=== PATIENT | male | born 1975 | race Caucasian/White ===

== ENCOUNTER 2017-09-06 05:47 | Emergency (ER) | payer OTHER ==
[~2017-09-06] VITALS: Ht 175.3 cm; Wt 2.3 kg
--- OUTSIDE RECORDS SUMMARY | 2017-09-06 05:57 | XMS REPORT ---
Author Author GONZALEZ ROSAS [facility] Address [address] [place] [address] Care Team Providers Care Tick Sewer Name Role Phone GONZLAEZ ROSAS Unavailable PROBLEMS Type Condition ICD9-CM Code [id number] Code Onset Dates Condition Status SNOMED Code Problem Cubital tunnel syndrome on left G56.22 Active 52793744 Problem Family history of cardiovascular disease Z82.49 Active 382786517 ALLERGIES No Information SOCIAL HISTORY Never Assessed PLAN OF CARE VITAL SIGNS MEDICATIONS Unknown Medications RESULTS No Results PROCEDURES No Known procedures IMMUNIZATIONS No Known Immunizations
--- OUTSIDE RECORDS SUMMARY | 2017-09-06 05:57 | XMS REPORT ---
Author Author GONZALEZ ROSAS [facility] Address [address] [place] [address] Care Team Providers Care Freight Loading Supervisor Name Role Phone GONZALEZ ROSAS Unavailable PROBLEMS Type Condition ICD9-CM Code [id number] Code Onset Dates Condition Status SNOMED Code Problem Cubital tunnel syndrome on left G56.22 Active 66405916 Problem Family history of cardiovascular disease Z82.49 Active 291601488 ALLERGIES No Known Allergies SOCIAL HISTORY Never Assessed PLAN OF CARE Activity Details Follow Up CERTIFIED SHORTHAND REPORTER or as needed Reason: VITAL SIGNS Height 68 in 2016-11-03 Weight 214.5 lbs 2016-11-03 Temperature 98.3 degrees Fahrenheit 2016-11-03 Heart Rate 96 bpm 2016-11-03 Respiratory Rate 20 2016-11-03 BMI 32.61 kg/m2 2016-11-03 Blood pressure systolic 110 mmHg 2016-11-03 Blood pressure diastolic 72 mmHg 2016-11-03 MEDICATIONS Medication Instructions Dosage Frequency Start Date End Date Duration Status PredniSONE 20 MG Orally Once a day 1 tablet 24h Oct, Oct, 5 day(s) Active Meloxicam 15 MG Orally Once a day 1 tablet 24h December, 30 day(s) Active RESULTS No Results PROCEDURES No Known procedures IMMUNIZATIONS No Known Immunizations
--- OUTSIDE RECORDS SUMMARY | 2017-09-06 05:57 | XMS REPORT ---
Author NICOLE Pro [facility] eClinicalWorks Address Unknown Phone Unavailable Care Team Providers Care Electronics Assembler Name Role Phone NICOLE BHATTI CP Unavailable Allergies, Adverse Reactions, Alerts Substance Reaction Event Type N.K.D.A. Info Not Available Non Drug Allergy Problems Problem Type Condition Code Onset Dates Condition Status Assessment Nausea & vomiting R11.2 Active Medications Medication Code System Code Instructions Start Date End Date Status Dosage Leonel [facility] [address]-44 4 MG Orally 3 times a day December 16, 2015 1 tablet Procedures Procedure Coding System Code Date Office Visit, Est Pt., Level 3 CPT-4 85906 December 16, 2015 Vital Signs Date/Time: December 16, 2015 Temperature 98.1 F Weight 209.5 lbs Height 68 in BMI 31.85 Index Blood Pressure Diastolic 76 mmHg Blood Pressure Systolic 104 mmHg Cardiac Monitoring Heart Rate 108 bpm Results No Known Results Summary Purpose eClinicalWorks Submission
--- OUTSIDE RECORDS SUMMARY | 2017-09-06 05:57 | XMS REPORT ---
Author VIOLETA Enriquez [facility] eClinicalWorks Address Unknown Phone Unavailable Care Team Providers Care Resume Writer Name Role Phone VIOLETA CONNOR CP Unavailable Allergies, Adverse Reactions, Alerts Substance Reaction Event Type N.K.D.A. Info Not Available Non Drug Allergy Problems Problem Type Condition ICD-9 Code Onset Dates Condition Status Assessment Allergic rhinitis due to allergen 477.9 Active Medications Medication Code System Code Instructions Start Date End Date Status Dosage Flonase [facility] [address]-72 50 MCG/ACT Nasally Once a day May 08, 2015 1 spray in each nostril Claritin [facility] [address]-29 10 MG Orally Once a day May 08, 2015 1 tablet Procedures Procedure Coding System Code Date Office Visit, New Pt., Level 3 CPT-4 13401 May 08, 2015 Vital Signs Date/Time: May 08, 2015 Temperature 98.7 F Weight 196.9 lbs Height 68 in BMI 29.94 Index Blood Pressure Diastolic 80 mmHg Blood Pressure Systolic 110 mmHg Cardiac Monitoring Heart Rate 84 bpm Results No Known Results Summary Purpose eClinicalWorks Submission
--- OUTSIDE RECORDS SUMMARY | 2017-09-06 05:57 | XMS REPORT ---
Author Author DORA VARGAS [facility] eClinicalWorks Address Unknown Phone Unavailable Care Team Providers Care Metal Wire Technician Name Role Phone DORA VARGAS CP Unavailable Allergies, Adverse Reactions, Alerts Substance Reaction Event Type N.K.D.A. Info Not Available Non Drug Allergy Problems Problem Type Condition Code Onset Dates Condition Status Assessment Routine adult health maintenance Z00.00 Active Assessment Family history of cardiovascular disease Z82.49 Active Problem Family history of cardiovascular disease Z82.49 Active Medications No Known Medications Procedures Procedure Coding System Code Date Office Visit, Est Pt., Level 3 CPT-4 52481 Jun 11, 2016 Vital Signs Date/Time: Jun 11, 2016 Cardiac Monitoring Heart Rate 88 bpm Weight 215 lbs Height 68 in BMI 32.69 Index Blood Pressure Diastolic 80 mmHg Blood Pressure Systolic 132 mmHg Results No Known Results Summary Purpose eClinicalWorks Submission
--- OUTSIDE RECORDS SUMMARY | 2017-09-06 05:57 | XMS REPORT ---
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 Reason:elbow VITAL SIGNS Height 68 in 2016-10-13 Weight 213.5 lbs 2016-10-13 Temperature 98.5 degrees Fahrenheit 2016-10-13 Heart Rate 96 bpm 2016-10-13 Respiratory Rate 20 2016-10-13 BMI 32.46 kg/m2 2016-10-13 Blood pressure systolic 128 mmHg 2016-10-13 Blood pressure diastolic 88 mmHg 2016-10-13 MEDICATIONS Medication Instructions Dosage Frequency Start Date End Date Duration Status Meloxicam 15 MG Orally Once a day 1 tablet 24h Sep, Nov, 30 day(s) Active PredniSONE 20 mg Orally Once a day 1 tablet 24h Sep, Oct, 07 days Active RESULTS Name Result Date Reference Range Xray : Elbow, Right 2 views (IN HOUSE) 2016-10-13 PROCEDURES Procedure Date Ordered Result Body Site X-RAY EXAM OF ELBOW Oct 13, 2016 IMMUNIZATIONS No Known Immunizations
--- NOTE | 2017-09-06 06:20 | ED Cough/URI ---
General Chief Complaint: Cough/Cold/Flu Symptoms Stated Complaint: COLD,POSS FEVER,NAUSEA,COUGHING Nursing Triage Note: PT C/O COUGH/CONGESTION/FEVER/CHILLS SINCE YESTERDAY. Source: patient Exam Limitations: no limitations History of Present Illness Time seen by provider: 06:10 Initial Comments Patient presents to ER by private conveyance with a chief complaint the past day he's had chills feeling hot, dry cough with feeling of something in his throat but he can't get out. His been drinking a lot of fluids taking some Tylenol and not feeling any better. When he went to work this morning I told him he needed to come the checked out because they're concerned he might have the flu. He is also concerned that he is a 21-fqqzq[age]vqf child home without a history of pyloric stenosis and had a surgery so he is trying to quit smoking and is down to 6 cigarettes a day and wants to prevent her from touching it. He did not get a flu vaccine this year. He is not having any rash or known fever. Has not taken any Tylenol or Motrin. He denies any history of asthma or COPD. Allergies and Home Medications Allergies Coded Allergies: No Known Drug Allergies (Unverified , 09/06/17) Home Medications Guaifenesin/Codeine Phosphate 120 Ml Liquid, 5 ML PO Q6H PRN for COUGH, #120 Ref 0 Prescribed by: JASON MICHEL on 09/06/17 0621 Constitutional: chills, dizziness, No fever, malaise EENTM: No ear discharge, No ear pain Respiratory: cough, No hemoptysis, No phlegm, No short of breath, No wheezing Cardiovascular: No Hx of Intervention, No syncope Gastrointestinal: No abdominal pain, No diarrhea, No nausea, No vomiting Genitourinary: No discharge, No dysuria Musculoskeletal: No back pain, No joint pain Skin: No pruritus, No rash Past Rhqaolb-Ztcuyu-Pptowt Hx Patient Social History Alcohol Use: Denies Use Recreational Drug Use: No Smoking Status: Current Everyday Smoker Type Used: Cigarettes (0.25 ppd) 2nd Hand Smoke Exposure: Yes Recent Foreign Travel: No Contact w/Someone Who Travel: No Recent Infectious Disease Expo: No Recent Hopitalizations: No Seasonal Allergies Seasonal Allergies: No Surgeries History of Surgeries: No Physical Exam Vital Signs Vital Sign - Last 12Hours 09/06/17 06:00 Temp 99.4 Pulse 109 Resp 18 B/P (MAP) 119/104 (109) Pulse Ox 97 O2 Delivery Room Air Capillary Refill : Less Than 3 Seconds General Appearance: WD/WN, no apparent distress Eyes: Bilateral Eye Normal Inspection, Bilateral Eye PERRL, Bilateral Eye EOMI HEENT: PERRL/EOMI, TM abnormal (R) (mucoid effusion), TM abnormal (L) (mucoid effusion), No pharyngeal erythema, No tonsillar exudate Neck: non-tender, full range of motion, supple, normal inspection Respiratory: chest non-tender, lungs clear, normal breath sounds, no respiratory distress, no accessory muscle use Cardiovascular: normal peripheral pulses, regular rate, rhythm, no edema Extremities: normal inspection, normal capillary refill Neurologic/Psychiatric: alert, oriented x 3 Skin: normal color, warm/dry Lymphatic: no adenopathy Progress/Results/Core Measures Suspected Sepsis Recent Fever Within 48 Hours: No Infection Criteria Present: None New/Unexplained Altered Menta: No Sepsis Screen: No Definite Risk Sepsis Diagnosis: SIRS Temperature:99.4 Pulse: 109 Respiratory Rate: 18 Blood Pressure 119 /104 Mean: 109 Results/Orders Micro Results Microbiology 09/06/17 Influenza Types A,B Antigen (SRIDHAR) - Final, Complete My Orders Orders - JASON MICHEL Influenza A And B Antigens (09/06/17 06:14) Vital Signs/I&O Vital Sign - Last 12Hours 09/06/17 09/06/17 06:00 06:00 Temp 99.4 Pulse 109 Resp 18 B/P (MAP) 119/104 (109) Pulse Ox 97 O2 Delivery Room Air Room Air Capillary Refill : Less Than 3 Seconds Blood Pressure Mean: 109 Departure Impression Impression: Primary Impression: Upper respiratory infection Qualified Codes: J06.9 - Acute upper respiratory infection, unspecified Disposition: 01 HOME, SELF-CARE Condition: Stable Departure-Patient Inst. Decision time for Depature: 06:44 Referrals: NO,LOCAL PHYSICIAN (PCP/Family) Primary Care Physician Patient Instructions: Viral Upper Respiratory Infection, Adult (DC) Add. Discharge Instructions: Drink plenty of fluids. If you're having a cough you may take 5 mL or 1 tablespoon of the cough syrup every 6 hours as needed. Get some rest and use Tylenol 1000 mg every 8 hours and/or ibuprofen 800 mg every 8 hours by mouth for pain, body aches, chills, fever. Wear a mask when in public or new your child. Wash her hands and use hand hr generalist's. Use vapor rubs and humidifiers and turn the heat down in the house. All discharge instructions reviewed with patient and/or family. Voiced understanding. Scripts Guaifenesin/Codeine Phosphate (Codeine-Guaifen 10-100 mg/5 ml) 120 Ml Liquid 5 ML PO Q6H Y for COUGH, #120 ML 0 Refills Prov: JASON MICHEL 09/06/17 Work/School Note: Work Release Form Date Seen in the Emergency Department: Sep 06, 2017 Return to Work: Sep 08, 2017 Restrictions: No Restrictions JASON MICHEL Sep 06, 2017 06:20
[2017-09-06] MEDS ORDERED: GUAI120L56 PO (06:21)
[2017-09-06 06:49] VITALS: BP 110/75
== END 2017-09-06 06:49 | disposition home or self-care (01) ==
LOC: EDUNIT# 05:47 → ER 05:53
DX: J06.9 Acute upper respiratory infection, unspecified (principal); F17.210 Nicotine dependence, cigarettes, uncomplicated
CPT/HCPCS: 87804; 99282

== ENCOUNTER 2018-03-03 07:09 | Emergency (ER) | payer BC ==
[~2018-03-03] VITALS: Ht 175.3 cm; Wt 97.5 kg
[~2018-03-03 07:09] MED LIST: GUAI120L56 PO
--- OUTSIDE RECORDS SUMMARY | 2018-03-03 07:15 | XMS REPORT ---
Author Author DORA VARGAS [facility] Address [address] [place] [address] Care Team Providers Care Sales Lead Name Role Phone DORA VARGAS Unavailable PROBLEMS Type Condition ICD9-CM Code ZSA91-SQ Code Onset Dates Condition Status SNOMED Code Problem Cubital tunnel syndrome on left G56.22 Active 26551932 Problem Family history of cardiovascular disease Z82.49 Active 794345466 ALLERGIES No Known Allergies ENCOUNTERS Encounter Location Date Diagnosis [facility] [id number] [place] [phone] Jun, Routine adult health maintenance Z00.00 [facility] [address] [phone] Feb, Acute nasopharyngitis (common cold) J00 [facility] [address] [address] December, Cubital tunnel syndrome on left G56.22 [facility] [id number] [place] [address] Oct, Medial epicondylitis of right elbow M77.01 [facility] [id number] [place] [address] Oct, Right elbow pain M25.521 [facility] [id number] [place] [address] Sep, [facility] [address] [address] Sep, Right elbow pain M25.521 [facility] [id number] [place] [address] May, Routine adult health maintenance Z00.00 and Family history of cardiovascular disease Z82.49 [place] [address] [address] [address] 29 Apr, 2016 Pharyngitis, unspecified etiology J02.9 [place] [id number] [place] [address] 08 Jan, 2016 Tinea pedis of left foot B35.3 [place] [id number] [place] [address] Nov, Nausea & vomiting R11.2 [id number] [place] [address] Sep, Sinusitis J32.9 and Cough R05 [place] [id number] [place] [address] 17 Apr, 2015 Allergic rhinitis due to allergen 477.9 [id number] [place] [address] Apr, IMMUNIZATIONS No Known Immunizations SOCIAL HISTORY Never Assessed REASON FOR VISIT physical--Eliana Corado MA PLAN OF CARE Activity Details Follow Up prn Reason: VITAL SIGNS Height 68 in 2017-07-12 Weight 213.1 lbs 2017-07-12 Temperature 98.7 degrees Fahrenheit 2017-07-12 Heart Rate 92 bpm 2017-07-12 Respiratory Rate 20 2017-07-12 BMI 32.40 kg/m2 2017-07-12 Blood pressure systolic 124 mmHg 2017-07-12 Blood pressure diastolic 78 mmHg 2017-07-12 MEDICATIONS Medication Instructions Dosage Frequency Start Date End Date Duration Status Promethazine-Codeine 6.25-10 MG/5ML Orally every 6 hrs cough 5 ml as needed Sep, Not-Taking Zofran 4 MG Orally 3 times a day 1 tablet 8h Nov, 05 days Not- Taking RESULTS No Results PROCEDURES No Known procedures INSTRUCTIONS MEDICATIONS ADMINISTERED No Known Medications
--- OUTSIDE RECORDS SUMMARY | 2018-03-03 07:15 | XMS REPORT ---
Author Author MIGUEL A Dubon [facility] Address [address] [place] [address] Care Team Providers Care Pool Attendant Name Role Phone MIGUEL A Dubon Unavailable PROBLEMS Type Condition ICD9-CM Code RWG39-KY Code Onset Dates Condition Status SNOMED Code Problem Cubital tunnel syndrome on left G56.22 Active 11146854 Problem Family history of cardiovascular disease Z82.49 Active 482372079 ALLERGIES No Known Allergies ENCOUNTERS Encounter Location Date Diagnosis [place] [id number] [place] [phone] Jun, Routine adult health maintenance Z00.00 [facility] IN [facility] [id number] [place] [phone] Feb, Acute nasopharyngitis (common cold) J00 [facility] [address] [address] December, Cubital tunnel syndrome on left G56.22 [facility] [id number] [place] [address] Oct, Medial epicondylitis of right elbow M77.01 [facility] [id number] [place] [address] Oct, Right elbow pain M25.521 [facility] [id number] [place] [address] Sep, [facility] [id number] [place] [address] Sep, Right elbow pain M25.521 [facility] [id number] [place] [address] May, Routine adult health maintenance Z00.00 and Family history of cardiovascular disease Z82.49 [place] [id number] [place] [address] 29 Apr, 2016 Pharyngitis, unspecified etiology J02.9 [place] [id number] [place] [address] 08 Jan, 2016 Tinea pedis of left foot B35.3 [place] [id number] [place] [address] Nov, Nausea & vomiting R11.[address] [address] Sep, Sinusitis J32.9 and Cough R05 [place] [id number] [place] [address] 17 Apr, 2015 Allergic rhinitis due to allergen 477.9 [id number] [place] [address] 16 Apr, 2011 IMMUNIZATIONS No Known Immunizations SOCIAL HISTORY Never Assessed REASON FOR VISIT Congestion and generalized weakness, patient just changed shifts at work. LYLE Lee. PLAN OF CARE Activity Details Follow Up prn Reason: VITAL SIGNS Height 68 in 2017-03-17 Weight 217.89 lbs 2017-03-17 Temperature 97.5 degrees Fahrenheit 2017-03-17 Heart Rate 88 bpm 2017-03-17 Respiratory Rate 18 2017-03-17 BMI 33.13 kg/m2 2017-03-17 Blood pressure systolic 126 mmHg 2017-03-17 Blood pressure diastolic 80 mmHg 2017-03-17 MEDICATIONS No Known Medications RESULTS No Results PROCEDURES No Known procedures INSTRUCTIONS MEDICATIONS ADMINISTERED No Known Medications
--- NOTE | 2018-03-03 08:15 | ED Headache ---
General Chief Complaint: Head/Cervical Problems Stated Complaint: HEADACHE,COLD SYMPTOMS Nursing Triage Note: PT AMB. TO ROOM 5 W/O DIFFICULTY WITH CO SAUCEDO AND CONJESTION THAT BEGAN YESTERDAY. A&OX4. PT REPORTS DRAINAGE AND CONJESTION. Nursing Sepsis Screen: No Definite Risk Source: patient Exam Limitations: no limitations History of Present Illness Date Seen by Provider: Mar 03, 2018 Time Seen by Provider: 08:08 Initial Comments This 42-year-old white male presents with a complaint of sinus pressure over the frontal sinuses made worse by leaning forward. The patient's had a fullness in both ears. He denies associated fever, chills, sore throat, stiff neck, photophobia, paresthesias or weakness in the extremities, or similar episode in the past. Allergies and Home Medications Allergies Coded Allergies: No Known Drug Allergies (Unverified , 09/06/17) Home Medications Guaifenesin/Codeine Phosphate 120 Ml Liquid, 5 ML PO Q6H PRN for COUGH Prescribed by: JASON MICHEL on 09/06/17 0621 Patient Home Medication List Home Medication List Reviewed: Yes Review of Systems Constitutional: No chills, No fever Eyes: Denies Blurred Vision Ears, Nose, Mouth, Throat: see HPI (patient has a fullness in his ears made better by popping his ears. He also has sinus pressure over his frontal sinuses.); denies ear pain, denies ear discharge, denies epistaxis Respiratory: No cough, No short of breath Cardiovascular: No chest pain Gastrointestinal: No abdominal pain, No nausea, No vomiting Genitourinary: no symptoms reported Musculoskeletal: no symptoms reported Skin: No rash Psychiatric/Neurological: No Symptoms Reported Past Afkmcpg-Rvigtf-Iwbmex Hx Past Med/Social Hx: Reviewed Nursing Past Med/Soc Hx Patient Social History Alcohol Use: Rarely Uses Alcohol Beverage of Choice: Beer Recreational Drug Use: No Smoking Status: Current Someday Smoker Type Used: Cigarettes 2nd Hand Smoke Exposure: Yes Recent Foreign Travel: No Contact w/Someone Who Travel: No Recent Infectious Disease Expo: No Recent Hopitalizations: No Physical Abuse: No Sexual Abuse: No Seasonal Allergies Seasonal Allergies: No Past Medical History Surgeries: No Respiratory: No Cardiac: No Neurological: No Genitourinary: No Gastrointestinal: No Musculoskeletal: No Endocrine: No HEENT: No Cancer: No Psychosocial: No Nursing Suicide Risk Score: 0 Integumentary: No Blood Disorders: No Physical Exam Vital Signs Vital Signs - First Documented 03/03/18 07:23 Temp 97.6 Pulse 80 Resp 15 B/P (MAP) 125/92 (103) Pulse Ox 97 O2 Delivery Room Air O2 Flow Rate 0 Capillary Refill : Less Than 3 Seconds Height, Weight, BMI Height: 5'9.00" Weight: 215lbs. oz. 97.397167lq; BMI Method:Stated General Appearance: WD/WN, no apparent distress HEENT: normal ENT inspection, other (there is tenderness to palpation of the frontal sinuses. The tympanic membranes are clear and soliman.) Cardiovascular: regular rate, rhythm Respiratory: lungs clear Gastrointestinal: normal bowel sounds, soft Back: normal inspection Extremities: normal inspection Psychiatric: alert, oriented x 3 Crainal Nerves: normal hearing, normal speech Motor/Sensory: no motor deficit Skin: normal color, warm/dry Progress/Results/Core Measures Results/Orders Vital Signs/I&O 03/03/18 07:23 Temp 97.6 Pulse 80 Resp 15 B/P (MAP) 125/92 (103) Pulse Ox 97 O2 Delivery Room Air O2 Flow Rate 0 Blood Pressure Mean: 103 Progress Progress Note : Time: 08:11 Progress Note The patient clinically has sinusitis. He declined imaging of his sinuses or laboratory evaluation this morning. The patient was treated with prednisone and Bactrim. Ibuprofen and or Tylenol for pain was recommended. Patient was given a work note for today. Patient would like to be referred to [facility] for follow-up on Tuesday. I encouraged the patient return to the emergency department if any further problems or questions. Departure Impression Primary Impression: Sinusitis, acute frontal Qualified Codes: J01.10 - Acute frontal sinusitis, unspecified Disposition: HOME, SELF-CARE Condition: Unchanged Departure-Patient Inst. Decision time for Depature: 08:13 Referrals: [facility]/YAIR HEATH,LOCAL PHYSICIAN (PCP) Primary Care Physician Patient Instructions: Sinusitis, Adult (DC) Add. Discharge Instructions: Bactrim and prednisone as prescribed. Tylenol and or ibuprofen for pain. Rest at home today. Follow-up with [facility] on Tuesday. Return if any problems or questions All discharge instructions reviewed with patient and/or family. Voiced understanding. BRAEDEN REYNAGA MD Mar 03, 2018 08:15
[2018-03-03 08:23] VITALS: BP 125/92
== END 2018-03-03 08:23 | disposition home or self-care (01) ==
LOC: EDUNIT# 07:09 → ER 07:11
DX: J01.10 Acute frontal sinusitis, unspecified (principal); F17.210 Nicotine dependence, cigarettes, uncomplicated
CPT/HCPCS: 99282

== ENCOUNTER 2018-05-16 06:18 | Emergency (ER) | payer BC ==
[~2018-05-16] VITALS: Ht 175.3 cm; Wt 97.5 kg
--- OUTSIDE RECORDS SUMMARY | 2018-05-16 06:23 | XMS REPORT ---
Author Author DORA VARGAS [facility] Address [address] [place] [address] Care Team Providers Care Finisher Fine Diamond Dies Name Role Phone DORA VARGAS Unavailable PROBLEMS Type Condition ICD9-CM Code DFA99-MX Code Onset Dates Condition Status SNOMED Code Problem Seasonal allergies J30.2 Active 571478343 Problem Reactive depression F32.9 Active 12923716 Problem Cubital tunnel syndrome on left G56.22 Active 11219550 Problem Family history of cardiovascular disease Z82.49 Active 737298831 ALLERGIES No Information ENCOUNTERS Encounter Location Date Diagnosis [facility] [address] [address] Feb, Acute recurrent frontal sinusitis J01.11 ; Reactive depression F32.9 and Seasonal allergies J30.2 [facility] [id number] [place] [address] 30969- 5181 Feb, Reactive depression F32.9 [facility] [id number] [place] [address] 74842- 3679 Feb, [facility] [id number] [place] [address] 93899- 5174 Jan, Weakness R53.1 and Family history of cardiovascular disease Z82.49 [facility] [id number] [place] [address] 28592- 4608 Jan, Weakness R53.1 and Family history of cardiovascular disease Z82.49 [facility] [address] [address]- [address]1 Jun, Routine adult health maintenance Z00.00 [facility] [id number] [place] [address] 85030 -2167 Feb, Acute nasopharyngitis (common cold) [address] [place] [address] [place] [address] 32205- 3173 December, Cubital tunnel syndrome on left G56.22 [place] [id number] [place] [address] 19436- 1687 Oct, Medial epicondylitis of right elbow M77.01 [place] [id number] [place] [address] 16986- 5604 Oct, Right elbow pain M25.521 [place] [id number] [place] [address] 42960- 1738 Sep, [place] [id number] [place] [address] 94288- 3324 Sep, Right elbow pain M25.521 [place] [id number] [place] [address] 33156- 6584 May, Routine adult health maintenance Z00.00 and Family history of cardiovascular disease Z82.49 [place] [id number] [place] [address] 72059- 7982 Apr, Pharyngitis, unspecified etiology J02.9 [place] [id number] [place] [address] 79533- 2910 Jan, Tinea pedis of left foot B35.3 [place] [id number] [place] [address] 93508- 6941 Nov, Nausea & vomiting R11.2 [place] [id number] [place] [address] 08146- 2047 24 Sep, 2015 Sinusitis J32.9 and Cough R05 [place] [id number] [place] [address] 72305- 6364 17 Apr, 2015 Allergic rhinitis due to allergen 477.9 [place] [id number] [place] [address] 73821- 4273 16 Sep, 2011 IMMUNIZATIONS No Known Immunizations SOCIAL HISTORY Never Assessed REASON FOR VISIT Lab (walk-in) PLAN OF CARE VITAL SIGNS MEDICATIONS No Known Medications RESULTS No Results PROCEDURES Procedure Date Ordered Result Body Site LIPID PANEL February 15, 2018 COMPREHEN METABOLIC PANEL February 15, 2018 ASSAY THYROID STIM HORMONE February 15, 2018 COMPLETE CBC W/AUTO DIFF WBC February 15, 2018 VENIPUNCT, ROUTINE* February 15, 2018 INSTRUCTIONS MEDICATIONS ADMINISTERED No Known Medications
--- OUTSIDE RECORDS SUMMARY | 2018-05-16 06:23 | XMS REPORT ---
Author Author DORA VARGAS [facility] Address [address] [place] [address] Care Team Providers Care Engineering Aide Name Role Phone DORA VARGAS Unavailable PROBLEMS Type Condition ICD9-CM Code SCK70-VC Code Onset Dates Condition Status SNOMED Code Problem Seasonal allergies J30.2 Active 658482365 Problem Reactive depression F32.9 Active 03990483 Problem Cubital tunnel syndrome on left G56.22 Active 83034237 Problem Family history of cardiovascular disease Z82.49 Active 603571421 ALLERGIES No Known Allergies ENCOUNTERS Encounter Location Date Diagnosis [facility] [address] [address]- [address] Feb, Acute recurrent frontal sinusitis J01.11 ; Reactive depression F32.9 and Seasonal allergies J30.2 [facility] [id number] [place] [address] 36378- 5925 Feb, Reactive depression F32.9 [facility] [id number] [place] [address] 12406- 5606 Feb, [facility] [id number] [place] [address] 47071- 6010 Jan, Weakness R53.1 and Family history of cardiovascular disease Z82.49 [facility] [id number] [place] [address] 91662- 7175 Jan, Weakness R53.1 and Family history of cardiovascular disease Z82.49 [facility] [address] 15242- 3903 Jun, Routine adult health maintenance Z00.[address] [facility] [id number] [place] [address] 95781 -6512 Feb, Acute nasopharyngitis (common cold) [address] [place] [address] [place] [address] 54564- 0565 December, Cubital tunnel syndrome on left G56.22 [place] [id number] [place] [address] 69401- 0290 Oct, Medial epicondylitis of right elbow M77.01 [place] [id number] [place] [address] 44446- 2530 Oct, Right elbow pain M25.521 [place] [id number] [place] [address] 57527- 0052 Sep, [place] [id number] [place] [address] 96176- 4154 Sep, Right elbow pain M25.521 [place] [id number] [place] [address] 54570- 1486 May, Routine adult health maintenance Z00.00 and Family history of cardiovascular disease Z82.49 [place] [id number] [place] [address] 63137- 8349 Apr, Pharyngitis, unspecified etiology J02.9 [place] [id number] [place] [address] 70243- 5494 Jan, Tinea pedis of left foot B35.3 [place] [id number] [place] [address] 12709- 4493 Nov, Nausea & vomiting R11.2 [place] [id number] [place] [address] 36688- 6272 24 Sep, 2015 Sinusitis J32.9 and Cough R05 [place] [id number] [place] [address] 98700- 2530 17 Apr, 2015 Allergic rhinitis due to allergen 477.9 [place] [id number] [place] [address] 86068- 0478 16 Apr, 2011 IMMUNIZATIONS No Known Immunizations SOCIAL HISTORY Never Assessed REASON FOR VISIT two weeks ago PT had sharp pain in the lower left back area, the pain moved to the right area. After using the restroom the PT would get up and have to go back due to sensations he wasn't finished. Diarrhea/Vomiting-Alpesh ALVARENGA, PT has a current new born and in the past year feels like his thrive has , he has no energy to play with the kids and no sex drive PLAN OF CARE Activity Details Follow Up Will call after lab Reason: VITAL SIGNS Height 68 in 2018-02-06 Weight 222.7 lbs 2018-02-06 Temperature 98.6 degrees Fahrenheit 2018-02-06 Heart Rate 76 bpm 2018-02-06 Respiratory Rate 20 2018-02-06 BMI 33.86 kg/m2 2018-02-06 Blood pressure systolic 122 mmHg 2018-02-06 Blood pressure diastolic 72 mmHg 2018-02-06 MEDICATIONS No Known Medications RESULTS No Results PROCEDURES No Known procedures INSTRUCTIONS MEDICATIONS ADMINISTERED No Known Medications
--- OUTSIDE RECORDS SUMMARY | 2018-05-16 06:23 | XMS REPORT ---
Author Author DORA VARGAS [facility] Address [address] [place] [address] Care Team Providers Care Industrial Maintenance Repairer Name Role Phone DORA VARGAS Unavailable PROBLEMS Type Condition ICD9-CM Code ORY03-EF Code Onset Dates Condition Status SNOMED Code Problem Seasonal allergies J30.2 Active 445217619 Problem Reactive depression F32.9 Active 44244846 Problem Cubital tunnel syndrome on left G56.22 Active 64136397 Problem Family history of cardiovascular disease Z82.49 Active 848933472 ALLERGIES No Information ENCOUNTERS Encounter Location Date Diagnosis [facility] [address] [address]- [address] Feb, Acute recurrent frontal sinusitis J01.11 ; Reactive depression F32.9 and Seasonal allergies J30.2 [facility] [id number] [place] [address] 93063- 6633 Feb, Reactive depression F32.9 [facility] [id number] [place] [address] 28882- 9600 Feb, [facility] [id number] [place] [address] 30006- 0917 Jan, Weakness R53.1 and Family history of cardiovascular disease Z82.49 [facility] [id number] [place] [address] 88631- 3493 Jan, Weakness R53.1 and Family history of cardiovascular disease Z82.49 [facility] [address] 39908- 8710 Jun, Routine adult health maintenance Z00.00 [facility] [id number] [place] [address] 14998 -9687 Feb, Acute nasopharyngitis (common cold) [address] [place] [address] [place] [address] 53971- 0318 December, Cubital tunnel syndrome on left G56.22 [place] [id number] [place] [address] 57110- 8263 Oct, Medial epicondylitis of right elbow M77.01 [place] [id number] [place] [address] 22317- 6067 Oct, Right elbow pain M25.521 [place] [id number] [place] [address] 49479- 6807 Sep, [place] [id number] [place] [address] 93422- 9040 Sep, Right elbow pain M25.521 [place] [id number] [place] [address] 24196- 2716 May, Routine adult health maintenance Z00.00 and Family history of cardiovascular disease Z82.49 [place] [id number] [place] [address] 13549- 7902 Apr, Pharyngitis, unspecified etiology J02.9 [place] [id number] [place] [address] 74548- 8717 Jan, Tinea pedis of left foot B35.3 [place] [id number] [place] [address] 24457- 6938 Nov, Nausea & vomiting R11.2 [place] [id number] [place] [address] 95000- 9244 24 Sep, 2015 Sinusitis J32.9 and Cough R05 [place] [id number] [place] [address] 04615- 2997 17 Apr, 2015 Allergic rhinitis due to allergen 477.9 [place] [id number] [place] [address] 82000- 1787 16 Sep, 2011 IMMUNIZATIONS No Known Immunizations SOCIAL HISTORY Never Assessed REASON FOR VISIT labs PLAN OF CARE VITAL SIGNS MEDICATIONS No Known Medications RESULTS No Results PROCEDURES No Known procedures INSTRUCTIONS MEDICATIONS ADMINISTERED No Known Medications
--- OUTSIDE RECORDS SUMMARY | 2018-05-16 06:23 | XMS REPORT ---
Author Author DORA VARGAS [facility] Address [address] [place] [address] Care Team Providers Care Commercial Truck Driver Name Role Phone DORA VARGAS Unavailable PROBLEMS Type Condition ICD9-CM Code BGC77-AA Code Onset Dates Condition Status SNOMED Code Problem Seasonal allergies J30.2 Active 960230832 Problem Reactive depression F32.9 Active 49681308 Problem Cubital tunnel syndrome on left G56.22 Active 98318137 Problem Family history of cardiovascular disease Z82.49 Active 057245059 ALLERGIES No Information ENCOUNTERS Encounter Location Date Diagnosis [facility] [address] [address]- [address] Feb, Acute recurrent frontal sinusitis J01.11 ; Reactive depression F32.9 and Seasonal allergies J30.2 [facility] [id number] [place] [address] 91197- 5966 Feb, Reactive depression F32.9 [facility] [id number] [place] [address] 12856- 2532 Feb, [facility] [id number] [place] [address] 10665- 8890 Jan, Weakness R53.1 and Family history of cardiovascular disease Z82.49 [facility] [id number] [place] [address] 34980- 2030 Jan, Weakness R53.1 and Family history of cardiovascular disease Z82.49 [facility] [address] 62846- 6148 Jun, Routine adult health maintenance Z00.00 [facility] [id number] [place] [address] 22251 -6661 Feb, Acute nasopharyngitis (common cold) [address] [place] [address] [place] [address] 39255- 4445 December, Cubital tunnel syndrome on left G56.22 [place] [id number] [place] [address] 08709- 6081 Oct, Medial epicondylitis of right elbow M77.01 [place] [id number] [place] [address] 03531- 1600 Oct, Right elbow pain M25.521 [place] [id number] [place] [address] 02651- 2186 Sep, [place] [id number] [place] [address] 20104- 0569 Sep, Right elbow pain M25.521 [place] [id number] [place] [address] 28336- 4062 May, Routine adult health maintenance Z00.00 and Family history of cardiovascular disease Z82.49 [place] [id number] [place] [address] 26592- 9886 Apr, Pharyngitis, unspecified etiology J02.9 [place] [id number] [place] [address] 65429- 7454 Jan, Tinea pedis of left foot B35.3 [place] [id number] [place] [address] 58062- 5551 Nov, Nausea & vomiting R11.2 [place] [id number] [place] [address] 83772- 5349 24 Sep, 2015 Sinusitis J32.9 and Cough R05 [place] [id number] [place] [address] 18849- 8243 17 Apr, 2015 Allergic rhinitis due to allergen 477.9 [place] [id number] [place] [address] 14624- 2523 16 Apr, 2011 IMMUNIZATIONS No Known Immunizations SOCIAL HISTORY Never Assessed REASON FOR VISIT PLAN OF CARE VITAL SIGNS MEDICATIONS Medication Instructions Dosage Frequency Start Date End Date Duration Status Zoloft 50 mg Orally Once a day 1 tablet 24h Feb, 30 day(s) Active RESULTS No Results PROCEDURES No Known procedures INSTRUCTIONS MEDICATIONS ADMINISTERED No Known Medications
--- OUTSIDE RECORDS SUMMARY | 2018-05-16 06:23 | XMS REPORT ---
Author Author DORA VARGAS [facility] Address [address] [place] [address] Care Team Providers Care Timber Buyer Name Role Phone DORA VARGAS Unavailable PROBLEMS Type Condition ICD9-CM Code FSE12-WB Code Onset Dates Condition Status SNOMED Code Problem Seasonal allergies J30.2 Active 800212639 Problem Reactive depression F32.9 Active 92145677 Problem Cubital tunnel syndrome on left G56.22 Active 81758710 Problem Family history of cardiovascular disease Z82.49 Active 201736032 ALLERGIES No Known Allergies ENCOUNTERS Encounter Location Date Diagnosis [facility] [address] [address]- [address] Feb, Acute recurrent frontal sinusitis J01.11 ; Reactive depression F32.9 and Seasonal allergies J30.2 [facility] [id number] [place] [address] 15271- 1092 Feb, Reactive depression F32.9 [facility] [id number] [place] [address] 66625- 4151 Feb, [facility] [id number] [place] [address] 27439- 4980 Jan, Weakness R53.1 and Family history of cardiovascular disease Z82.49 [facility] [id number] [place] [address] 05024- 7818 Jan, Weakness R53.1 and Family history of cardiovascular disease Z82.49 [facility] [address] 51394- 6189 Jun, Routine adult health maintenance Z00.00 [facility] [id number] [place] [address] 78475 -1449 Feb, Acute nasopharyngitis (common cold) J00 [place] [address] [place] [address] 67404- 8419 December, Cubital tunnel syndrome on left G56.22 [place] [id number] [place] [address] 25591- 3270 Oct, Medial epicondylitis of right elbow M77.01 [place] [id number] [place] [address] 76997- 7057 Oct, Right elbow pain M25.521 [place] [id number] [place] [address] 03549- 1222 Sep, [place] [id number] [place] [address] 24055- 4629 Sep, Right elbow pain M25.521 [place] [id number] [place] [address] 31492- 7225 May, Routine adult health maintenance Z00.00 and Family history of cardiovascular disease Z82.49 [place] [id number] [place] [address] 21542- 9127 Apr, Pharyngitis, unspecified etiology J02.9 [place] [id number] [place] [address] 03771- 7112 Jan, Tinea pedis of left foot B35.3 [place] [id number] [place] [address] 62998- 1730 Nov, Nausea & vomiting R11.2 [place] [id number] [place] [address] 64132- 4426 24 Sep, 2015 Sinusitis J32.9 and Cough R05 [place] [id number] [place] [address] 29397- 8395 17 Apr, 2015 Allergic rhinitis due to allergen 477.9 [place] [id number] [place] [address] 99596- 5512 16 Apr, 2011 IMMUNIZATIONS No Known Immunizations SOCIAL HISTORY Never Assessed REASON FOR VISIT Congestion Pt c/o sinus pain/pressure for 3-4 weeks with a cough along with post nasal drainage LYLE Garza PLAN OF CARE Activity Details Follow Up 6 Months Reason: VITAL SIGNS Height 68 in 2018-03-20 Weight 217.9 lbs 2018-03-20 Temperature 98.4 degrees Fahrenheit 2018-03-20 Heart Rate 88 bpm 2018-03-20 Respiratory Rate 20 2018-03-20 Oximetry 98 % 2018-03-20 BMI 33.13 kg/m2 2018-03-20 Blood pressure systolic 126 mmHg 2018-03-20 Blood pressure diastolic 76 mmHg 2018-03-20 MEDICATIONS Medication Instructions Dosage Frequency Start Date End Date Duration Status Doxycycline Hyclate 100 mg Orally twice a day 1 capsule 12h Feb, Mar, 07 days Active SudoGest 60 mg Orally every 6 hrs 1 tablet as needed 6h Feb, 05 days Active Zoloft 50 mg Orally Once a day 1 tablet 24h Feb, 30 day(s) Active RESULTS No Results PROCEDURES No Known procedures INSTRUCTIONS MEDICATIONS ADMINISTERED No Known Medications
[2018-05-16] MEDS ORDERED: NS IV 1000 ML 1,000 ML IV SCH (06:33)
--- NOTE | 2018-05-16 06:39 | ED Abdominal Pain ---
General Stated Complaint: LOWER ABD PAIN Source of Information: Patient Exam Limitations: No Limitations History of Present Illness Date Seen by Provider: May 16, 2018 Time Seen by Provider: 06:26 Initial Comments Patient presents to ER by private conveyance with chief complaint that he's having some suprapubic abdominal pain that radiates towards the umbilicus. He says it started off as very mild and is gotten worse over the last couple days. He had a low-grade fever and feeling of chills for the past one day but the highest she's measured was 99.6F. He has not had any nausea or vomiting. He thought maybe he was constipated so he took some Ex-Lax and that helped him have several large bowel movements but it did not improve his symptoms. He is not having any bloody diarrhea. He has no history of trauma, abdominal surgeries , medical history does not take any other medications routinely. No medical allergies. He does smoke about three quarter pack per day but denies alcohol or drugs. He says sometimes his pain is worse on the left lower quadrant and suprapubic. This is the second day he's had to miss for work and his is concerned he might have appendicitis so he decided to come to the ER to be checked out. Allergies and Home Medications Allergies Coded Allergies: No Known Drug Allergies (Unverified , 09/06/17) Home Medications Ciprofloxacin HCl 500 Mg Tablet, 500 MG PO BID Prescribed by: JASON MICHEL on 05/16/18 08 Guaifenesin/Codeine Phosphate 120 Ml Liquid, 5 ML PO Q6H PRN for COUGH Prescribed by: JASON MICHEL on 09/06/17 06 Metronidazole 500 Mg Tablet, 500 MG PO Q8H Prescribed by: JASON MICHEL on 05/16/18 08 Ondansetron 4 Mg Tab.rapdis, 4 MG PO Q6H PRN for NAUSEA/VOMITING Prescribed by: JASON MICHEL on 05/16/18 0809 Patient Home Medication List Home Medication List Reviewed: Yes Review of Systems Review of Systems Constitutional: chills; No diaphoresis; fever, malaise EENTM: No Eye Pain, No Eye Tearing Respiratory: Denies Cough, Denies Shortness of Air Cardiovascular: Denies Chest Pain, Denies Edema Gastrointestinal: See HPI; Denies Abdomen Distended; Abdominal Pain, Constipated; Denies Diarrhea, Denies Nausea, Denies Poor Appetite, Denies Poor Fluid Intake, Denies Rectal Bleeding, Denies Vomiting Genitourinary: Denies Discharge, Denies Drainage Musculoskeletal: No back pain, No joint pain Skin: No pruritus, No rash Psychiatric/Neurological: Denies Headache, Denies Numbness, Denies Paresthesia Past Rduldxu-Tdmvop-Vbmhmu Hx Patient Social History Alcohol Use: Occasionally Uses Alcohol Beverage of Choice: Beer Recreational Drug Use: No Smoking Status: Current Everyday Smoker Type Used: Cigarettes (0.75 ppd) 2nd Hand Smoke Exposure: Yes Recent Foreign Travel: No Contact w/Someone Who Travel: No Recent Hopitalizations: No Seasonal Allergies Seasonal Allergies: No Past Medical History Surgeries: No Respiratory: No Cardiac: No Neurological: No Genitourinary: No Gastrointestinal: No Musculoskeletal: No Endocrine: No HEENT: No Cancer: No Psychosocial: No Integumentary: No Blood Disorders: No Physical Exam Vital Signs Vital Signs - First Documented 05/16/18 06:23 Temp 98.1 Pulse 104 Resp 18 B/P (MAP) 127/95 (106) O2 Delivery Room Air Capillary Refill : Height/Weight/BMI Height: 5'9.00" Weight: 215lbs. oz. 97.414321rh; BMI Method:Stated General Appearance: WD/WN, mild distress HEENT: PERRL/EOMI, pharynx normal Neck: non-tender, full range of motion, normal inspection Respiratory: chest non-tender, lungs clear, normal breath sounds, no respiratory distress, no accessory muscle use Cardiovascular: normal peripheral pulses, regular rate, rhythm, no edema, tachycardia Peripheral Pulses: 2+ Dorsalis Pedis (R), 2+ Left Dors-Pedis (L), 2+ Radial Pulses (R), 2+ Radial Pulses (L) Gastrointestinal: normal bowel sounds (active), guarding; No rebound; tenderness (left lower quadrant and suprapubic region), other (negative for Kimbrough's sign or rebound tenderness. No hepatosplenomegaly, negative for McBurney's point tenderness) Extremities: normal range of motion, normal inspection, no pedal edema Neurologic/Psychiatric: alert, normal mood/affect, oriented x 3 Skin: normal color, warm/dry Focused Exam Lactate Level 05/16/18 06:38: Lactic Acid Level 0.99 Lactic Acid Level Laboratory Tests Test 05/16/18 06:38 Lactic Acid Level 0.99 MMOL/L (0.50-2.00) Progress/Results/Core Measures Results/Orders Lab Results Laboratory Tests Test 05/16/18 06:38 05/16/18 06:41 Range/Units White Blood Count 20.6 H 4.3-11.0 10^3/uL Red Blood Count 4.91 4.35-5.85 10^6/uL Hemoglobin 15.5 13.3-17.7 G/DL Hematocrit 44 40-54 % Mean Corpuscular Volume 89 80-99 FL Mean Corpuscular Hemoglobin 32 25-34 PG Mean Corpuscular Hemoglobin Concent 35 32-36 G/DL Red Cell Distribution Width 12.9 10.0-14.5 % Platelet Count 241 130-400 10^3/uL Mean Platelet Volume 10.9 H 7.4-10.4 FL Neutrophils (%) (Auto) 75 42-75 % Lymphocytes (%) (Auto) 12 12-44 % Monocytes (%) (Auto) 12 0-12 % Eosinophils (%) (Auto) 1 0-10 % Basophils (%) (Auto) 0 0-10 % Neutrophils # (Auto) 15.6 H 1.8-7.8 X 10^3 Lymphocytes # (Auto) 2.4 1.0-4.0 X 10^3 Monocytes # (Auto) 2.5 H 0.0-1.0 X 10^3 Eosinophils # (Auto) 0.2 0.0-0.3 10^3/uL Basophils # (Auto) 0.0 0.0-0.1 10^3/uL Neutrophils % (Manual) 75 % Lymphocytes % (Manual) 12 % Monocytes % (Manual) 12 % Eosinophils % (Manual) 1 % Stomatocytes SLIGHT Prothrombin Time 13.6 12.2-14.7 SEC INR Comment 1.0 0.8-1.4 Activated Partial Thromboplast Time 33 24-35 SEC Sodium Level 138 135-145 MMOL/L Potassium Level 3.8 3.6-5.0 MMOL/L Chloride Level 106 98-107 MMOL/L Carbon Dioxide Level 20 L 21-32 MMOL/L Anion Gap 12 5-14 MMOL/L Blood Urea Nitrogen 11 7-18 MG/DL Creatinine 0.78 0.60-1.30 MG/DL Estimat Glomerular Filtration Rate > 60 BUN/Creatinine Ratio 14 Glucose Level 115 H 70-105 MG/DL Lactic Acid Level 0.99 0.50-2.00 MMOL/L Calcium Level 9.7 8.5-10.1 MG/DL Corrected Calcium 9.5 8.5-10.1 MG/DL Total Bilirubin 1.0 0.1-1.0 MG/DL Aspartate Amino Transf (AST/SGOT) 12 5-34 U/L Alanine Aminotransferase (ALT/SGPT) 10 0-55 U/L Alkaline Phosphatase 96 40-136 U/L Total Protein 7.6 6.4-8.2 GM/DL Albumin 4.2 3.2-4.5 GM/DL Urine Color YELLOW Urine Clarity CLEAR Urine pH 6 5-9 Urine Specific [place] 1.015 L 1.016-1.022 Urine Protein 2+ H NEGATIVE Urine Glucose (UA) NEGATIVE NEGATIVE Urine Ketones 1+ H NEGATIVE Urine Nitrite NEGATIVE NEGATIVE Urine Bilirubin 1+ H NEGATIVE Urine Urobilinogen 4 H NORMAL MG/DL Urine Leukocyte Esterase 1+ H NEGATIVE Urine RBC (Auto) 2+ H NEGATIVE Urine RBC NONE /HPF Urine WBC 0-2 /HPF Urine Squamous Epithelial Cells 0-2 /HPF Urine Crystals NONE /LPF Urine Bacteria FEW H /HPF Urine Casts NONE /LPF Urine Mucus SMALL H /LPF Urine Culture Indicated NO My Orders Orders - JASON MICHEL Cbc With Automated Diff (05/16/18 06:33) Comprehensive Metabolic Panel (05/16/18 06:33) Blood Culture (05/16/18 06:33) Sputum Culture (05/16/18 06:33) Urinalysis (05/16/18 06:33) Urine Culture (05/16/18 06:33) Protime With Inr (05/16/18 06:33) Partial Thromboplastin Time (05/16/18 06:33) Saline Lock/Iv-Start (05/16/18 06:33) Saline Lock/Iv-Start (05/16/18 06:33) Vital Signs Adult Sepsis Patie Q15M (05/16/18 06:33) O2 (05/16/18 06:33) Remove Rings In Anticipation O (05/16/18 06:33) Lactic Acid Analyzer (05/16/18 06:33) Ns Iv 1000 Ml (Sodium Chloride 0.9%) (05/16/18 06:33) Ceftriaxone For Iv Use (Rocephin For I (05/16/18 06:45) Ct Abd/Pelv W (Appendicitis) (05/16/18 06:33) Ketorolac Injection (Toradol Injection) (05/16/18 06:45) Manual Differential (05/16/18 06:38) Iohexol Injection (Omnipaque 350 Mg/Ml 1 (05/16/18 07:15) Ns (Ivpb) (Sodium Chloride 0.9%) (05/16/18 07:15) Ciprofloxacin Tablet (Cipro Tablet) (05/16/18 08:11) Metronidazole Tablet (Flagyl Tablet) (05/16/18 08:15) Medications Given in ED Current Medications Medications Dose Ordered Sig/Yazan Route Start Time Stop Time Status Last Admin Dose Admin Ceftriaxone Sodium 1000 mg/ Sodium Chloride 50 ml @ 100 mls/hr ONCE ONCE IV 05/16/18 06:45 05/16/18 07:14 DC 05/16/18 07:45 100 MLS/HR Iohexol 100 ml ONCE ONCE IV 05/16/18 07:15 05/16/18 07:16 DC 05/16/18 07:33 100 ML Ketorolac Tromethamine 15 mg ONCE ONCE IVP 05/16/18 06:45 05/16/18 06:46 DC 05/16/18 06:51 15 MG Sodium Chloride 80 ml ONCE ONCE IV 05/16/18 07:15 05/16/18 07:16 DC 05/16/18 07:33 80 ML Vital Signs/I&O 05/16/18 06:23 Temp 98.1 Pulse 104 Resp 18 B/P (MAP) 127/95 (106) O2 Delivery Room Air Progress Progress Note : Time: 07:59 Progress Note The patient has received the first liter of saline and his heart rate is already down in the 80s. The Toradol did not do much to help his pain but it did take away the sensation of fever and chills. He is feeling much better without nausea. The patient has extenuating family circumstances and that he does not want to stay in the hospital if he doesn't have to. We have discussed the risks of going home and the difficulties and, with a plan to allow him to go home and follow-up the next 1-2 days with his primary medical team and we discussed return precautions. We will put him on Cipro and Flagyl orally before he leaves home as well as Zofran. We have also encouraged him to start working towards getting a plan in place in case she has to come back to the hospital. We have discussed that it's against the recommendation of the surgeon and why. We have also encouraged him only to drink water or other clear liquids. For pain were going to avoid opiates and just use Tylenol Motrin, distraction, heat etc. Consults #1: Consulting Physician: MARLENY BAZAN DO Consults Notes The patient lab, presentation and CT examination was discussed with Dr. Bazan and he recommends if there is air in the abdominal cavity without abscess he would put the patient nothing by mouth in the hospital at least for 1 day. He' ll be happy to consult on the patient. We discussed antibiotics and he agrees with Cipro and Flagyl. Consults #2: Consulting Physician: RAO GAMBOA MD Consults Notes Discussed case and the patient's desire to do outpatient therapy. We're going to have her have her schedulers call him to get an appointment next couple days. She agrees with the plan. Departure Impression Primary Impression: Diverticulitis of intestine Qualified Codes: K57.20 - Diverticulitis of large intestine with perforation and abscess without bleeding Disposition: 01 HOME, SELF-CARE Condition: Stable Departure-Patient Inst. Decision time for Depature: 08:06 Referrals: [facility] [place] Primary Care Physician MARLENY BAZAN DO Patient Instructions: Diverticulitis (DC) Add. Discharge Instructions: Clear liquid diet only until your pain has resolved then you can slowly advance her diet towards her more regular diet. If you have increased nausea vomiting or pain you should go back to clear liquid. If you have intractable nausea vomiting or pain you should return to the ER for further evaluation. You can treat her pain with Tylenol 1000 mg every 8 hours and/or ibuprofen 800 mg every 8 hours in addition to heat, distraction etc. Expect a phone call from your primary care office today to get an appointment set up in the next 1-2 days for follow-up. Take the ciprofloxacin 1 tablet twice a day for a week. Take the Flagyl 1 tablet 3 times a day for a week. 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 melter supervisor the Zofran and take one tablet every 6 hours and let it dissolve in your mouth as needed for nausea or vomiting. Scripts Ondansetron (Ondansetron Odt) 4 Mg Tab.rapdis 4 MG PO Q6H PRN for NAUSEA/VOMITING, #8 TAB 0 Refills Prov: JASON MICHEL 05/16/18 Metronidazole (Flagyl) 500 Mg Tablet 500 MG PO Q8H for 7 Days, #21 TAB 0 Refills Prov: JASON MICHEL 05/16/18 Ciprofloxacin HCl (Ciprofloxacin HCl) 500 Mg Tablet 500 MG PO BID for 7 Days, #14 TAB 0 Refills Prov: JASON MICHEL 05/16/18 Work/School Note: Work Release Form Date Seen in the Emergency Department: May 16, 2018 Return to Work: May 22, 2018 Restrictions: No Restrictions Copy Copies To 1: TANIYA HERBERT DO; MARLENY BAZAN DO JASON MICHEL May 16, 2018 06:39
[2018-05-16] MEDS ORDERED: cefTRIAXone FOR IV USE 1,000 MG in NS (IVPB) 50 ML IV ONE (06:45)
[2018-05-16] MEDS ORDERED: KETOROLAC 30 MG/ML VIAL IVP ONE (06:45)
[2018-05-16 06:57] LABS: BASOPHILS % (AUTO) 0 % (0-10); EOSINOPHILS # (AUTO) 0.2 10^3/uL (0.0-0.3); EOSINOPHILS % (AUTO) 1 % (0-10); HEMATOCRIT 44 % (40-54); HEMOGLOBIN 15.5 G/DL (13.3-17.7); LYMPHOCYTES # (AUTO) 2.4 X 10^3 (1.0-4.0); LYMPHOCYTES % (AUTO) 12 % (12-44); MEAN CORPUSCULAR HEMOGLOBIN 32 PG (25-34); MEAN CORPUSCULAR HGB CONC 35 G/DL (32-36); MEAN CORPUSCULAR VOLUME 89 FL (80-99); MEAN PLATELET VOLUME 10.9 FL (7.4-10.4); MONOCYTES # (AUTO) 2.5 X 10^3 (0.0-1.0); MONOCYTES % (AUTO) 12 % (0-12); NEUTROPHILS # (AUTO) 15.6 X 10^3 (1.8-7.8); NEUTROPHILS % (AUTO) 75 % (42-75); PLATELET COUNT 241 10^3/uL (130-400); RED BLOOD COUNT 4.91 10^6/uL (4.35-5.85); RED CELL DISTRIBUTION WIDTH 12.9 % (10.0-14.5); WHITE BLOOD COUNT 20.6 10^3/uL (4.3-11.0)
[2018-05-16 06:58] LABS: BILIRUBIN,URINE 1+ (NEGATIVE); CLARITY,URINE CLEAR; COLOR,URINE YELLOW; GLUCOSE, URINE (UA) NEGATIVE (NEGATIVE); KETONES,URINE 1+ (NEGATIVE); LEUKOCYTE ESTERASE ,URINE 1+ (NEGATIVE); NITRITE,URINE NEGATIVE (NEGATIVE); PH,URINE 6 (5-9); PROTEIN,URINE 2+ (NEGATIVE); UROBILINOGEN,URINE 4 MG/DL (NORMAL)
[2018-05-16 07:09] LABS: BACTERIA,URINE FEW /HPF; WBC,URINE 0-2 /HPF
[2018-05-16 07:10] LABS: SQUAMOUS EPITHELIAL CELL,UR 0-2 /HPF
[2018-05-16 07:12] LABS: PROTHROMBIN TIME PATIENT 13.6 SEC (12.2-14.7)
[2018-05-16] MEDS ORDERED: NS 250 ML (IVPB) BAG IV ONE (07:15)
[2018-05-16] MEDS ORDERED: IOHEXOL 350 MG/ML 100 ML (OMNIPAQUE 350) VIAL IV ONE (07:15)
[2018-05-16 07:19] LABS: ALANINE AMINOTRANSFERASE 10 U/L (0-55); ALBUMIN 4.2 GM/DL (3.2-4.5); ALKALINE PHOSPHATASE 96 U/L (40-136); BUN/CREATININE RATIO 14; CALCIUM 9.7 MG/DL (8.5-10.1); CARBON DIOXIDE 20 MMOL/L (21-32); CHLORIDE 106 MMOL/L (98-107); CREATININE SERUM 0.78 MG/DL (0.60-1.30); GFR ESTIMATED > 60; GLUCOSE 115 MG/DL (70-105); POTASSIUM 3.8 MMOL/L (3.6-5.0); SODIUM 138 MMOL/L (135-145); TOTAL PROTEIN 7.6 GM/DL (6.4-8.2)
[2018-05-16 07:26] LABS: EOSINOPHILS % (MANUAL) 1 %; LYMPHOCYTES % (MANUAL) 12 %; MONOCYTES % (MANUAL) 12 %; NEUTROPHILS % (MANUAL) 75 %; STOMATOCYTES SLIGHT
--- NOTE | 2018-05-16 07:54 | Diagnostic Imaging Report ---
PROCEDURE: CT abdomen and pelvis with contrast, rule out appendicitis. TECHNIQUE: Multiple contiguous axial images were obtained through the abdomen and pelvis after the administration of intravenous contrast. INDICATION: Abdominal pain The previous CT abdomen/pelvis exam of 03/23/2008 noted partial obstruction of right collecting system due to a calculus at the uterovesical junction. There were no other abnormalities identified. In the interval since the prior exam considerable distortion of the mesenteric fat has developed adjacent to the sigmoid colon. I do suspect that this is due to edema/inflammation related to acute diverticulitis. There is also a collection of gas in the fat along the right lateral aspect of the sigmoid colon. This gas collection measures 9 x 17 mm and is most likely related to a microperforation. There is no drainable abscess visualized and there is little free fluid in the pelvis. The appendix was imaged and is not abnormally thickened. The urinary bladder and prostate gland are grossly unremarkable. There is a 4 mm nonobstructive calculus within the right kidney. Both kidneys do appear to show excretion of the contrast. The liver, spleen, pancreas, adrenals, gallbladder, aorta and inferior vena cava are unremarkable for an acute abnormality. The stomach is not well-distended and consequently difficult to assess. The lung bases are clear. The bone window shows no evidence for a fracture or for a destructive lesion. IMPRESSION: 1. The distortion of the pericolic fat about the sigmoid colon does suggest edema/inflammation. Most likely this is due to acute diverticulitis. There also appears to a microperforation. There is no abscess visualized however. 2. There is no acute abnormality of the abdomen or pelvis noted otherwise. 3. There is a small nonobstructive calculus within the right kidney. 4. These results were discussed with Dr. Gonsales in the ER. Dictated by: Dictated on workstation # [id number]
[2018-05-16] MEDS ORDERED: METR500T PO (08:09)
[2018-05-16] MEDS ORDERED: ONDA4TAB11 PO (08:09)
[2018-05-16] MEDS ORDERED: CIPR500T4 PO (08:09)
[2018-05-16] MEDS ORDERED: CIPROFLOXACIN 500 MG (CIPRO) TABLET PO STA (08:11)
[2018-05-16] MEDS ORDERED: metroNIDAZOLE 500 MG (FLAGYL) TAB PO ONE (08:15)
[2018-05-16 08:23] VITALS: BP 128/76
== END 2018-05-16 08:22 | disposition home or self-care (01) ==
LOC: EDUNIT# 06:18 → ER 06:20
DX: K57.20 Diverticulitis of large intestine with perforation and abscess without bleeding (principal); F17.210 Nicotine dependence, cigarettes, uncomplicated
CPT/HCPCS: 36415; 74177; 80053; 81000; 83605; 85007; 85027; 85610; 85730; 87040; 87088; 96361; 96365; 96375

== ENCOUNTER 2020-03-24 06:11 | Emergency (ER) | payer BC ==
[~2020-03-24] VITALS: Ht 177.8 cm; Wt 113.0 kg
[~2020-03-24 06:11] MED LIST changes: +CIPR500T4 PO; +METR500T PO; +ONDA4TAB11 PO
--- OUTSIDE RECORDS SUMMARY | 2020-03-24 06:17 | XMS REPORT ---
Author Author Chalo VARGAS Organization [facility] Address [address] [place] [address] Care Team Providers Care Sales Product Specialist Name Role Phone DORA VARGAS Unavailable PROBLEMS Type Condition ICD9-CM Code NZD67-MA Code Onset Dates Condition S tatus SNOMED Code Problem Diverticulitis K57.92 Active 16807 6006 Problem Seasonal allergies J30.2 Active 4 41544854 Problem Family history of cardiovascular disease Z82.49 Active 396992493 Problem Reactive depression F32.9 Active 31835676 Problem Cubital tunnel syndrome on left G56.22 Active [id number] ALLERGIES No Known Allergies ENCOUNTERS Encounter Location Date Diagnosis [place] [address] [facility] [id number] [address] [place] [phone] Apr, Diverticulitis K57.92 [place] [address] [facility] [id number] [address] [place] [phone] Feb, 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 ; Reactive depression F32.9 and Seasonal allergies J30.2 [place] [address] [facility] [id number] [address] [place] [phone] Feb, Reactive depression F32.9 [place] [address] [facility] [id number] [address] [place] [phone] Feb, [place] [address] [facility] [id number] [address] [place] [phone] Jan, Weakness R53.1 and Family hi story of cardiovascular disease Z82.49 [place] [address] [facility] [id number] [address] [place] [phone] Jan, Weakness R53.1 and Family hi story of cardiovascular disease Z82.49 [place] [address] [facility] [id number] [address] [place] [phone] Jun, Routine adult [facility] Z00.00 [facility] [address] [facility] [id number] [address] [place] [phone] Feb, Acute nasopharyngitis (commo n cold) J00 [facility] [address] [place] [id number] [address] [place] [phone] December, Cubital tunnel syndrome on l eft G56.22 [facility] [address] [place] [id number] [address] [place] [phone] Oct, Medial epicondylitis of righ t elbow M77.01 [facility] [address] [place] [id number] [address] [place] [phone] Oct, Right elbow pain M25.521 [facility] [id number] [place] [phone] Sep, [facility] [address] [phone] Sep, Right elbow pain M25.521 [facility] [address] [phone] May, Routine [facility] Z00.00 and Family history of cardiovascular disease Z82.49 [facility] [address] [place] [id number] [address] [place] [phone] Apr, Pharyngitis, unspecified simone ology J02.9 [facility] [address] [place] [id number] [address] [place] [phone] Jan, Tinea pedis of left foot B35 .3 [facility] [address] [place] [id number] [address] [place] [phone] Nov, Nausea & vomiting R11.2 [facility] [address] [place] [id number] [address] [place] [phone] 24 Sep, 2015 Sinusitis J32.[address] [facility] [address] [facility] [id number] [address] [address] 17 Apr, 2015 Allergic rhinitis due to all ergen 477.9 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 Felix ALVARENGA PLAN OF CARE Activity Details Follow Up prn Reason: VITAL SIGNS Height 68 in 2018-05-19 Weight 207.6 lbs 2018-05-19 Temperature 98.1 degrees Fahrenheit 2018-05-19 Heart Rate 82 bpm 2018-05-19 Respiratory Rate 20 2018-05-19 BMI 31.56 kg/m2 2018-05-19 Blood pressure systolic 124 mmHg 2018-05-19 Blood pressure diastolic 78 mmHg 2018-05-19 MEDICATIONS Medication Instructions Dosage Frequency Start Date End Date Duration S tatus SudoGest 60 mg Orally every 6 hrs 1 tablet as needed 6h Feb, 8 5 days Active Zoloft 50 mg Orally Once a day 1 tablet 24h Feb, 30 day(s) Active RESULTS No Results PROCEDURES No Known procedures INSTRUCTIONS MEDICATIONS ADMINISTERED No Known Medications MEDICAL (GENERAL) HISTORY Type Description Date Medical History diverticulus Surgical History No Surgical history information
--- OUTSIDE RECORDS SUMMARY | 2020-03-24 06:17 | XMS REPORT | Continuity of Care Document ---
Author Organization Unknown Address Unknown Phone Unavailable Allergies Active Description Code Type Severity Reaction Onset Reported/Identified Relationship to Patient Clinical Status Yes No Known Drug Allergies [id number] Drug Allergy Unknown N/A 09/06/2017 Medications There is no data. Problems Date Dx Coded Attending Type Code Diagnosis Diagnosed By 09/06/2017 ANAND RICKETTS, JASON J Ot F17.210 NICOTINE DEPENDENCE, CIGARETTES, UNCOMPL 09/06/2017 ANAND RICKETTS, JASON J Ot J06. 9 ACUTE UPPER RESPIRATORY INFECTION, UNSPE 09/06/2017 BRADLEY MICHEL MDUS J Ot R05 COUGH 10/07/2017 JASON MICHEL MD J Ot F17.210 NICOTINE DEPENDENCE, CIGARETTES, UNCOMPL 10/07/2017 BRADLEY MICHEL MDUS J Ot J06. 9 ACUTE UPPER RESPIRATORY INFECTION, UNSPE 10/07/2017 ANAND RICKETTS, JASON J Ot R05 COUGH 03/03/2018 BRAEDEN REYNAGA MD Ot F17.210 NICOTINE DEPENDENCE, CIGARETTES, UNCOMPL 03/03/2018 BRAEDEN REYNAGA MD Ot J01. 10 ACUTE FRONTAL SINUSITIS, UNSPECIFIED 03/03/2018 BRAEDEN REYNAGA MD Ot R51 HEADACHE 03/06/2018 BRAEDEN REYNAGA MD Ot F17.210 NICOTINE DEPENDENCE, CIGARETTES, UNCOMPL 03/06/2018 BRAEDEN REYNAGA MD Ot J01. 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 33 PERIUMBILICAL PAIN 05/18/2018 JASON MICHEL MD J Ot F17.210 NICOTINE DEPENDENCE, CIGARETTES, UNCOMPL 05/18/2018 JASON MICHEL MD J Ot K57. 20 DVTRCLI OF LG INT W PERFORATION AND ABSC 05/18/2018 ANAND RICKETTS, JASON Lyons Ot R10. 33 PERIUMBILICAL PAIN Procedures There is no data. Results Test Result Range Influenza virus A and B antigen detectio n - 09/06/17 06:03 FLU RESULT NEGATIVE FOR INFLUENZA A AND B ANTIGENS BY IA NRG LIPID PANEL - 02/15/18 08:09 CHOLESTEROL, TOTAL 201 mg/dL <200 HDL CHOLESTEROL 22 mg/dL >40 TRIGLYCERIDES 341 mg/dL <150 LDL-CHOLESTEROL 130 mg/dL (calc) NRG CHOL/HDLC RATIO 9.1 (calc) <5.0 NON HDL CHOLESTEROL 179 mg/dL (calc) <13 0 Complete blood count (CBC) with automate d white blood cell (WBC) differential - 05/16/18 06:38 Blood leukocytes automated count (number/volume) 20.6 10*3/uL 4.3-11.0 Blood erythrocytes automated count (number/volume) 4.91 10*6/uL 4.35-5.85 Venous blood hemoglobin measurement (mass/volume) 15.5 g/dL 13.3-17.7 Blood hematocrit (volume fraction) 44 % 40-54 Automated erythrocyte mean corpuscular volume 89 [ foz_us] 80-99 Automated erythrocyte mean corpuscular h emoglobin (mass per erythrocyte) 32 pg 25-34 Automated erythrocyte mean corpuscular h emoglobin concentration measurement (mass/volume) 35 g/dL 32-36 Automated erythrocyte distribution width ratio 12. 9 % 10.0- 14.5 Automated blood platelet count (count/volume) 241 10*3/uL 130-400 Automated blood platelet mean volume measurement 10.9 [foz_us] 7.4-10.4 Automated blood neutrophils/100 leukocytes 75 % 42-75 Automated blood lymphocytes/100 leukocytes 12 % 12-44 Blood monocytes/100 leukocytes 12 % 0-12 Automated blood eosinophils/100 leukocytes 1 % 0-10 Automated blood basophils/100 leukocytes 0 % 0-10 Blood neutrophils automated count (number/volume) 15.6 10*3 1.8-7.8 Blood lymphocytes automated count (number/volume) 2.4 10*3 1.0-4.0 Blood monocytes automated count (number/volume) 2. 5 10*3 0.0-1.0 Automated eosinophil count 0.2 10*3/uL 0 .0-0.3 Automated blood basophil count (count/volume) 0.0 10*3/uL 0.0-0.1 Blood lactic acid measurement (moles/vol ume) - 05/16/18 06:38 Blood lactic acid measurement (moles/volume) 0.99 mmol/L 0.50-2.00 PT panel in platelet poor plasma by coag ulation assay - 05/16/18 06:38 Prothrombin time (PT) in platelet poor plasma by coagu lation assay 13.6 s 12.2-14.7 INR in platelet poor plasma or blood by coagulation as say 1.0 0.8-1.4 Activated partial thromboplastin time (a PTT) in platelet poor plasma bycoagulation assay - 05/16/18 06:38 Activated partial thromboplastin time (a PTT) in platelet poor plasma bycoagulation assay 33 s 24-35 Comprehensive metabolic panel - 05/16/18 06:38 Serum or plasma sodium measurement (moles/volume) 138 mmol/L 135-145 Serum or plasma potassium measurement (moles/volume) 3.8 mmol/L 3.6-5.0 Serum or plasma chloride measurement (moles/volume) 106 mmol/L 98-107 Carbon dioxide 20 mmol/L 21-32 Serum or plasma anion gap determination (moles/volume) 12 mmol/L 5-14 Serum or plasma urea nitrogen measurement (mass/volume ) 11 mg/dL 7-18 Serum or plasma creatinine measurement (mass/volume) 0.78 mg/dL 0.60-1.30 Serum or plasma urea nitrogen/creatinine mass ratio 14 NRG Serum or plasma creatinine measurement w ith calculation of estimated glomerular filtration rate > NRG Serum or plasma glucose measurement (mass/volume) 115 mg/dL 70-105 Serum or plasma calcium measurement (mass/volume) 9.7 mg/dL 8.5-10.1 Serum or plasma total bilirubin measurement (mass/volu me) 1.0 mg/dL 0.1-1.0 Serum or plasma alkaline phosphatase mary surement (enzymatic activity/volume) 96 U/L 40-136 Serum or plasma aspartate aminotransfera se measurement (enzymatic activity/volume) 12 U/L 5-34 Serum or plasma alanine aminotransferase measurement (enzymatic activity/volume) 10 U/L 0-55 Serum or plasma protein measurement (mass/volume) 7.6 g/dL 6.4-8.2 Serum or plasma albumin measurement (mass/volume) 4.2 g/dL 3.2-4.5 CALCIUM CORRECTED 9.5 mg/dL 8.5-10.1 Blood manual differential performed dete ction - 05/16/18 06:38 Blood monocytes/100 leukocytes 12 % NRG Manual blood segmented neutrophils/100 leukocytes 75 % NRG Manual blood lymphocytes/100 leukocytes 12 % NRG Manual eosinophils/100 leukocytes in nose 1 % NRG Blood stomatocytes detection by light microscopy S LIGHT NRG Bacterial blood culture - 05/16/18 06:38 Bacterial blood culture NG NRG Complete urinalysis with reflex to cultu re - 05/16/18 06:41 Urine color determination YELLOW NRG Urine clarity determination CLEAR NR G Urine pH measurement by test strip 6 5-9 Specific gravity of urine by test strip 1.015 1.016-1.022 Urine protein assay by test strip, semi-quantitative 2+ NEGATIVE Urine glucose detection by automated test strip NE GATIVE NEGATIVE Erythrocytes detection in urine sediment by light micr oscopy 2+ NEGATIVE Urine ketones detection by automated test strip 1+ NEGATIVE Urine nitrite detection by test strip NEGATIVE NEGATIVE Urine total bilirubin detection by test strip 1+ NEGATIVE Urine urobilinogen measurement by automated test strip (mass/volume) 4 mg/dL NORMAL Urine leukocyte esterase detection by dipstick 1+ NEGATIVE Automated urine sediment erythrocyte cou nt by microscopy (number/high power field) NONE NRG Automated urine sediment leukocyte count by microscopy (number/high power field) [HPF] NRG Bacteria detection in urine sediment by light microsco py FEW NRG Squamous epithelial cells detection in u rine sediment by light microscopy 0-2 NRG Crystals detection in urine sediment by light microsco py NONE NRG Casts detection in urine sediment by light microscopy NONE NRG Mucus detection in urine sediment by light microscopy SMALL NRG Complete urinalysis with reflex to culture NO NRG Bacterial urine culture - 05/16/18 06:41 Bacterial urine culture NG NRG Bacterial blood culture - 05/16/18 07:38 Bacterial blood culture NG NRG Encounters ACCT No. Visit Date/Time Discharge Status Pt. Type Provider Facility Loc./Unit Complaint [id number] 08/23/2018 16:40:00 08/23/2018 23:59:5 9 CLS [facility] [id number] 02/15/2018 08:00:00 Document Registration [id number] 05/16/2018 06:20:00 018 08:22:00 DIS Emergency ANAND RICKETTS, JASON Lyons [facility] ER LOWER ABD PAIN [id number] 03/03/2018 07:11:00 018 08:23:00 DIS Emergency RONNELL RICKETTS, BRAEDEN Pedersen [facility] ER HEADACHE,COLD SYMPTOMS [id number] 09/06/2017 05:53:00 018 06:49:00 DIS Emergency ANAND RICKETTS, JASON Lyons [facility] ER COLD,POSS FEVER,NAUSEA, COUGHING
--- NOTE | 2020-03-24 06:22 | ED GI ---
General Stated Complaint: DIVERTICULITIS History of Present Illness Date Seen by Provider: Mar 24, 2020 Time Seen by Provider: 06:17 Initial Comments 45-year-old male presents with suprapubic pain. Reports the pain started several days ago. That it feels like when he has a pain he needs to urinate. Patient has concerning my had diverticulitis because he said the past. He does not have any flank pain. He does not have any nausea vomiting or diarrhea. He does report some mild dysuria however. No reports of fever, cough or other systemic complaints. Allergies and Home Medications Allergies Coded Allergies: No Known Drug Allergies (Unverified , 09/06/17) Home Medications Ciprofloxacin HCl 500 Mg Tablet, 500 MG PO BID Prescribed by: JASON MICHEL on 05/16/18 0809 Ciprofloxacin HCl 500 Mg Tablet, 500 MG PO BID Prescribed by: ANABELLE SANABRIA on 03/24/20 0711 Guaifenesin/Codeine Phosphate 120 Ml Liquid, 5 ML PO Q6H PRN for COUGH Prescribed by: JASON MICHEL on 09/06/17 0621 Metronidazole 500 Mg Tablet, 500 MG PO Q8H Prescribed by: JASON MICHEL on 05/16/18 0809 Metronidazole 500 Mg Tablet, 500 MG PO BID Prescribed by: ANABELLE SANABRIA on 03/24/20 0711 Ondansetron 4 Mg Tab.rapdis, 4 MG PO Q6H PRN for NAUSEA/VOMITING Prescribed by: JASON MICHEL on 05/16/18 0809 Ondansetron 4 Mg Tab.rapdis, 4 MG PO Q6H PRN for NAUSEA/VOMITING Prescribed by: ANABELLE SANABRIA on 03/24/20 0711 Patient Home Medication List Home Medication List Reviewed: Yes Review of Systems Review of Systems Constitutional: No chills, No fever Respiratory: Denies Cough, Denies Shortness of Air Cardiovascular: Denies Chest Pain, Denies Irregular Heart Rate Gastrointestinal: Abdominal Pain (suprapubic); Denies Diarrhea, Denies Nausea, Denies Vomiting Genitourinary: See HPI, Frequency, Urgency Musculoskeletal: no symptoms reported Skin: no symptoms reported Psychiatric/Neurological: No Symptoms Reported Endocrine: No Symptoms Reported Past Ovakxxb-Bfitet-Rssfxz Hx Past Med/Social Hx: Reviewed Nursing Past Med/Soc Hx Patient Social History Alcohol Beverage of Choice: Beer Type Used: Cigarettes 2nd Hand Smoke Exposure: No Recent Foreign Travel: No Contact w/Someone Who Travel: No Recent Hopitalizations: No Seasonal Allergies Seasonal Allergies: No Past Medical History Surgeries: No Respiratory: No Cardiac: No Neurological: No Genitourinary: No Gastrointestinal: Yes Gastroesophageal Reflux Musculoskeletal: No Endocrine: No HEENT: No Cancer: No Psychosocial: No Integumentary: No Blood Disorders: No Physical Exam Vital Signs Vital Signs - First Documented 03/24/20 06:22 Temp 37.0 Pulse 115 Resp 20 B/P (MAP) 150/89 (109) Pulse Ox 97 O2 Delivery Room Air Capillary Refill : Height/Weight/BMI Height: 5'9.00" Weight: 215lbs. oz. 97.175117fc; BMI Method:Stated General Appearance: WD/WN, no apparent distress Neck: supple Respiratory: chest non-tender, lungs clear, normal breath sounds Cardiovascular: normal peripheral pulses, regular rate, rhythm Gastrointestinal: soft; No guarding, No rebound; tenderness (suprapubic ) Extremities: normal range of motion, non-tender Back: no CVA tenderness Neurologic/Psychiatric: alert, normal mood/affect, oriented x 3 Skin: normal color, warm/dry Progress/Results/Core Measures Results/Orders Lab Results Laboratory Tests Test 03/24/20 06:25 03/24/20 06:30 Range/Units White Blood Count 15.7 H 4.3-11.0 10^3/uL Red Blood Count 4.94 4.35-5.85 10^6/uL Hemoglobin 15.6 13.3-17.7 G/DL Hematocrit 45 40-54 % Mean Corpuscular Volume 91 80-99 FL Mean Corpuscular Hemoglobin 32 25-34 PG Mean Corpuscular Hemoglobin Concent 35 32-36 G/DL Red Cell Distribution Width 13.2 10.0-14.5 % Platelet Count 246 130-400 10^3/uL Mean Platelet Volume 10.6 H 7.4-10.4 FL Neutrophils (%) (Auto) 70 42-75 % Lymphocytes (%) (Auto) 15 12-44 % Monocytes (%) (Auto) 13 H 0-12 % Eosinophils (%) (Auto) 2 0-10 % Basophils (%) (Auto) 0 0-10 % Neutrophils # (Auto) 11.0 H 1.8-7.8 X 10^3 Lymphocytes # (Auto) 2.4 1.0-4.0 X 10^3 Monocytes # (Auto) 2.0 H 0.0-1.0 X 10^3 Eosinophils # (Auto) 0.3 0.0-0.3 10^3/uL Basophils # (Auto) 0.0 0.0-0.1 10^3/uL Neutrophils % (Manual) 68 % Lymphocytes % (Manual) 21 % Monocytes % (Manual) 6 % Eosinophils % (Manual) 3 % Basophils % (Manual) 0 % Band Neutrophils 2 % Blood Morphology Comment NORMAL Sodium Level 139 135-145 MMOL/L Potassium Level 3.8 3.6-5.0 MMOL/L Chloride Level 108 H 98-107 MMOL/L Carbon Dioxide Level 19 L 21-32 MMOL/L Anion Gap 12 5-14 MMOL/L Blood Urea Nitrogen 9 7-18 MG/DL Creatinine 0.80 0.60-1.30 MG/DL Estimat Glomerular Filtration Rate > 60 BUN/Creatinine Ratio 11 Glucose Level 129 H 70-105 MG/DL Calcium Level 9.1 8.5-10.1 MG/DL Corrected Calcium 8.9 8.5-10.1 MG/DL Total Bilirubin 0.8 0.1-1.0 MG/DL Aspartate Amino Transf (AST/SGOT) 16 5-34 U/L Alanine Aminotransferase (ALT/SGPT) 14 0-55 U/L Alkaline Phosphatase 94 40-136 U/L Total Protein 7.4 6.4-8.2 GM/DL Albumin 4.3 3.2-4.5 GM/DL Urine Color YELLOW Urine Clarity CLOUDY Urine pH 6.0 5-9 Urine Specific Dana 1.025 H 1.016-1.022 Urine Protein 1+ H NEGATIVE Urine Glucose (UA) NEGATIVE NEGATIVE Urine Ketones NEGATIVE NEGATIVE Urine Nitrite NEGATIVE NEGATIVE Urine Bilirubin 1+ H NEGATIVE Urine Urobilinogen 1.0 < = 1.0 MG/DL Urine Leukocyte Esterase NEGATIVE NEGATIVE Urine RBC (Auto) NEGATIVE NEGATIVE Urine RBC NONE /HPF Urine WBC 2-5 /HPF Urine Squamous Epithelial Cells 0-2 /HPF Urine Crystals NONE /LPF Urine Bacteria TRACE /HPF Urine Casts NONE /LPF Urine Mucus NEGATIVE /LPF Urine Culture Indicated NO My Orders Orders - ANABELLE SANABRIA DO Ed Iv/Invasive Line Start (8/3/20 06:23) Cbc With Automated Diff (03/24/20 06:23) Comprehensive Metabolic Panel (03/24/20 06:23) Ua Culture If Indicated (03/24/20 06:23) Abdomen/Kub 1view (03/24/20 06:23) Manual Differential (03/24/20 06:25) Vital Signs/I&O 03/24/20 06:22 Temp 37.0 Pulse 115 Resp 20 B/P (MAP) 150/89 (109) Pulse Ox 97 O2 Delivery Room Air Progress Progress Note : Time: 07:22 Progress Note Patient's has elevated white count and symptoms consistent with a previous diverticulitis. He was offered CAT scan versus treatment and watchful waiting. At this time he would prefer just to be treated. He will be prescribed Cipro Flagyl and Zofran. He should follow-up with his primary care provider couple days for recheck of symptoms sooner if needed. He will be discharged home in stable condition. He should return to the ER if symptoms significantly worsen. Diagnostic Imaging Diagonstic Imaging: Xray Comments [facility], [place] NAME: CAT[facility] REC#: [id number] PT STATUS: REG ER : 1975 PHYSICIAN: ANABELLE SANABRIA DO ADMIT DATE: 03/24/20/ER Draft Date of Exam:03/24/20 ABDOMEN/KUB 1VIEW HISTORY: Lower abdominal pain and pressure with urination. COMPARISON: 01/02/2007 TECHNIQUE: Supine frontal views of the abdomen. FINDINGS: No distended loops of bowel are seen. There is no evidence of obstruction. No large collection of free air is seen. There appears to be small calculi in the superior right kidney. The previously seen calculus in the mid right kidney is not well seen on this exam. No calculi are seen along the course of the right ureter. IMPRESSION: 1. Small calculi in the right kidney, with one calculus no longer seen. CT of the abdomen and pelvis would be more sensitive to evaluate for obstructing calculi. Departure Impression Primary Impression: Diverticulitis of intestine Qualified Codes: K57.92 - Diverticulitis of intestine, part unspecified, without perforation or abscess without bleeding Disposition: 01 HOME, SELF-CARE Condition: Stable Departure-Patient Inst. Referrals: [facility] (PCP/Family) Primary Care Physician Patient Instructions: Diverticulitis (DC) Scripts Ondansetron (Ondansetron Odt) 4 Mg Tab.rapdis 4 MG PO Q6H PRN for NAUSEA/VOMITING, #20 TAB 0 Refills Prov: ANABELLE SANABRIA DO 03/24/20 Metronidazole (Metronidazole) 500 Mg Tablet 500 MG PO BID, #14 TAB 0 Refills Prov: ANABELLE SANABRIA DO 03/24/20 Ciprofloxacin HCl (Ciprofloxacin HCl) 500 Mg Tablet 500 MG PO BID, #14 TAB Prov: ANABELLE SANABRIA DO 03/24/20 Work/School Note: Work Release Form Date Seen in the Emergency Department: Mar 24, 2020 Return to Work: Mar 26, 2020 ANABELLE SANABRIA DO Mar 24, 2020 06:22
[2020-03-24 06:39] LABS: BILIRUBIN,URINE 1+ (NEGATIVE); CLARITY,URINE CLOUDY; COLOR,URINE YELLOW; GLUCOSE, URINE (UA) NEGATIVE (NEGATIVE); KETONES,URINE NEGATIVE (NEGATIVE); LEUKOCYTE ESTERASE ,URINE NEGATIVE (NEGATIVE); NITRITE,URINE NEGATIVE (NEGATIVE); PROTEIN,URINE 1+ (NEGATIVE)
[2020-03-24 06:42] LABS: BASOPHILS % (AUTO) 0 % (0-10); EOSINOPHILS # (AUTO) 0.3 10^3/uL (0.0-0.3); EOSINOPHILS % (AUTO) 2 % (0-10); HEMATOCRIT 45 % (40-54); HEMOGLOBIN 15.6 G/DL (13.3-17.7); LYMPHOCYTES # (AUTO) 2.4 X 10^3 (1.0-4.0); LYMPHOCYTES % (AUTO) 15 % (12-44); MEAN CORPUSCULAR HEMOGLOBIN 32 PG (25-34); MEAN CORPUSCULAR HGB CONC 35 G/DL (32-36); MEAN CORPUSCULAR VOLUME 91 FL (80-99); MEAN PLATELET VOLUME 10.6 FL (7.4-10.4); MONOCYTES % (AUTO) 13 % (0-12); NEUTROPHILS % (AUTO) 70 % (42-75); PLATELET COUNT 246 10^3/uL (130-400); RED CELL DISTRIBUTION WIDTH 13.2 % (10.0-14.5); WHITE BLOOD COUNT 15.7 10^3/uL (4.3-11.0)
[2020-03-24 06:47] LABS: ALBUMIN 4.3 GM/DL (3.2-4.5); CHLORIDE 108 MMOL/L (98-107); POTASSIUM 3.8 MMOL/L (3.6-5.0); SODIUM 139 MMOL/L (135-145)
[2020-03-24 06:48] LABS: CALCIUM 9.1 MG/DL (8.5-10.1)
[2020-03-24 06:50] LABS: GLUCOSE 129 MG/DL (70-105); TOTAL PROTEIN 7.4 GM/DL (6.4-8.2)
[2020-03-24 06:51] LABS: BILIRUBIN,TOTAL 0.8 MG/DL (0.1-1.0); CARBON DIOXIDE 19 MMOL/L (21-32)
[2020-03-24 06:53] LABS: ALKALINE PHOSPHATASE 94 U/L (40-136); GFR ESTIMATED > 60
[2020-03-24 06:54] LABS: BACTERIA,URINE TRACE /HPF; SQUAMOUS EPITHELIAL CELL,UR 0-2 /HPF
[2020-03-24 06:54] LABS: BUN/CREATININE RATIO 11
[2020-03-24 06:56] LABS: ALANINE AMINOTRANSFERASE 14 U/L (0-55)
--- NOTE | 2020-03-24 07:10 | Diagnostic Imaging Report ---
HISTORY: Lower abdominal pain and pressure with urination. COMPARISON: 01/02/2007 TECHNIQUE: Supine frontal views of the abdomen. FINDINGS: No distended loops of bowel are seen. There is no evidence of obstruction. No large collection of free air is seen. There appears to be small calculi in the superior right kidney. The previously seen calculus in the mid right kidney is not well seen on this exam. No calculi are seen along the course of the right ureter. IMPRESSION: 1. Small calculi in the right kidney, with one calculus no longer seen. CT of the abdomen and pelvis would be more sensitive to evaluate for obstructing calculi. Dictated by: Dictated on workstation # [id number]
[2020-03-24] MEDS ORDERED: ONDA4TAB11 PO (07:11)
[2020-03-24] MEDS ORDERED: CIPR500T4 PO (07:11)
[2020-03-24] MEDS ORDERED: METR-145 PO (07:11)
[2020-03-24 07:24] VITALS: BP 142/80
[2020-03-24 07:24] LABS: BAND NEUTROPHILS 2 %; BASOPHILS % (MANUAL) 0 %; EOSINOPHILS % (MANUAL) 3 %; LYMPHOCYTES % (MANUAL) 21 %; MONOCYTES % (MANUAL) 6 %; NEUTROPHILS % (MANUAL) 68 %; RBC MORPH NORMAL
== END 2020-03-24 07:21 | disposition home or self-care (01) ==
LOC: EDUNIT# 06:11 → ER 06:13
DX: K57.92 Diverticulitis of intestine, part unspecified, without perforation or abscess without bleeding (principal); N20.0 Calculus of kidney
CPT/HCPCS: 36415; 74018; 80053; 81000; 85007; 85027